=== PATIENT | male | born 1995 | race Caucasian/White ===

== ENCOUNTER → 2019-12-10 | Outpatient (CLI) | payer SELFPAY ==
[~2019-12-10] MED LIST: AMOX500 PO; Baclofen10 MG PO; CEPH500 PO; CYCL10 PO; DOXY100 PO; HYDACE5 PO; HYDR1TAB94 PO; MELO7.5 PO; Naprosyn500 MG PO; Norco 5-325 Ta1 EACH PO; Ultram50 MG PO; Valium5 MG PO; Veetids 500500 MG PO
== END ==
LOC: LAB EV 18:53 → LAB SHORT 18:53
DX: N41.9 Inflammatory disease of prostate, unspecified (principal)
CPT/HCPCS: 87086

== ENCOUNTER → 2021-03-23 | Outpatient (CLI) | payer OTHER ==
[2021-03-26 12:11] LABS: CHLAMYDIA BY NAA Negative (Negative); GONOCOCCUS BY NAA Negative (Negative); TRICH VAG BY NAA Negative (Negative)
== END ==
LOC: LAB SHORT 19:02 → LAB 19:02 → LAB EV 19:02
PROVIDERS: Family Medicine
DX: N45.1 Epididymitis (principal)
CPT/HCPCS: 87491; 87591; 87661

== ENCOUNTER → 2021-10-27 | Outpatient (CLI) | payer OTHER ==
[2021-10-30 13:11] LABS: CHLAMYDIA BY NAA Negative (Negative); GONOCOCCUS BY NAA Negative (Negative); TRICH VAG BY NAA Negative (Negative)
== END | disposition home or self-care (01) ==
LOC: LAB SHORT 19:08 → LAB 19:08
PROVIDERS: Chiropractor
DX: R30.9 Painful micturition, unspecified (principal)
CPT/HCPCS: 87491; 87591; 87661